=== PATIENT | male | born 1980 | race Caucasian/White ===

== ENCOUNTER 2022-04-19 20:02 | Emergency (ER) | payer SELFPAY ==
[~2022-04-19] VITALS: Ht 187.9 cm; Wt 102.0 kg
--- NOTE | 2022-04-19 20:19 | ED Lower Extremity ---
General Stated Complaint: FOOT WOUND Source: patient Exam Limitations: no limitations History of Present Illness Date Seen by Provider: Apr 19, 2022 Time Seen by Provider: 20:10 Initial Comments 41-year-old type I diabetic male presents to the emergency room today for a wound to the bottom of his right foot. It has been present for couple of months. Has been seen by his primary doctor and wound care. He is on Bactrim and thinks it is actually getting better. His primary doctor had ordered some inflammatory markers that were elevated so he was advised to come here for possible MRI. He denies any fevers chills nausea or vomiting. Again he feels the wound is getting better. He states he just got back on insulin and pills for his diabetes and sugars are improving. Allergies and Home Medications Patient Home Medication List Home Medication List Reviewed: Yes Review of Systems Constitutional: no symptoms reported EENTM: no symptoms reported Respiratory: no symptoms reported Cardiovascular: no symptoms reported Gastrointestinal: no symptoms reported Genitourinary: no symptoms reported Musculoskeletal: no symptoms reported, other (Right foot wound) Skin: other (Right foot wound) Psychiatric/Neurological: No Symptoms Reported Past [id number] Hx Patient Social History Tobacco Use?: Yes Use of E-Cig and/or Vaping dev: No Substance use?: No Alcohol Use?: No Past Medical History Surgery/Hospitalization HX: Diabetes mellitus Family Medical History Reviewed Nursing Family Hx No Pertinent Family Hx Physical Exam Vital Signs Capillary Refill : Height, Weight, BMI Height: '" Weight: lbs. oz. kg; BMI Method: General Appearance: WD/WN, no apparent distress HEENT: normal ENT inspection, pharynx normal Neck: non-tender, full range of motion, supple, normal inspection Cardiovascular: regular rate, rhythm, no edema, no gallop, no JVD, no murmur Respiratory: chest non-tender, lungs clear, normal breath sounds, no r espiratory distress, no accessory muscle use Gastrointestinal: normal bowel sounds, non tender, soft, no organomegaly, no pulsatile mass Back: normal inspection, no CVA tenderness, no vertebral tenderness Feet: right foot other (Wound to the base of the right foot, about 2 cm in maximum diameter. Healing well without any purulent injury or surrounding erythema.) Neurologic/Psychiatric: alert, normal mood/affect, oriented x 3 Skin: other (Right plantar foot wound as described above) Departure Communication (Admissions) Patient is hemodynamically stable. His wound is actually improving since he has been on antibiotics for the last 3 days. His sugars are improving as well as he recently resumed his diabetic regimen. There is no indication for emergent MRI at this time. Given that he is improving with his symptoms I recommended he follow-up with his primary doctor wound care for discussion of the need for MRI versus watching and waiting. He states understanding. There is no evidence for systemic infection and is nontoxic. Impression Primary Impression: Wound, open, foot Qualified Codes: S91.301A - Unspecified open wound, right foot, initial encounter Disposition: HOME, SELF-CARE Condition: Stable Departure-Patient Inst. Patient Instructions: Wound Care (DC) Add. Discharge Instructions: It is imperative that you keep your sugars under control. Continue the antibiotics as prescribed. Work with your primary doctor or wound doctor for possible MRI. Follow-up with your wound care doctor as scheduled. NUZHAT QUIROZ DO Apr 19, 2022 20:19
[2022-04-19 20:48] VITALS: BP 145/96
== END 2022-04-19 20:48 | disposition home or self-care (01) ==
LOC: ER 20:06
DX: S91.301A Unspecified open wound, right foot, initial encounter (principal); X58.XXXA Exposure to other specified factors, initial encounter